=== PATIENT | female | born 1965 | race Two or more races ===

== ENCOUNTER 2022-03-25 12:05 | Emergency (ER) | payer OTHER ==
[~2022-03-25] VITALS: Ht 165.1 cm; Wt 104.3 kg
[2022-03-25 12:51] LABS: Urine WBC None Seen /hpf (0 - 5)
[2022-03-25 12:59] VITALS: BP 119/83
[2022-03-25] MEDS ORDERED: KETOROLAC TROMETH 60MG/2ML VIAL IM ONE (13:00)
[2022-03-25 13:14] LABS: Urine Amorphous Crystal FEW /hpf (None Seen); Urine Bacteria NONE SEEN /hpf (None Seen); Urine Blood 3+ /uL (Negative); Urine Specific Gravity 1.026 (1.001-1.035)
[2022-03-25] MEDS ORDERED: SULF400T11 PO (13:58)
[2022-03-25] MEDS ORDERED: PHEN200T16 PO (13:58)
== END 2022-03-25 14:14 | disposition home or self-care (01) ==
LOC: ER 12:05
DX: N30.01 Acute cystitis with hematuria (principal); K57.30 Diverticulosis of large intestine without perforation or abscess without bleeding; I10 Essential (primary) hypertension; E03.9 Hypothyroidism, unspecified; Z90.49 Acquired absence of other specified parts of digestive tract; Z90.710 Acquired absence of both cervix and uterus; Z79.899 Other long term (current) drug therapy
CPT/HCPCS: 74176; 81001; 96372; 99284; J1885